=== PATIENT | male | born 1990 | race Hispanic/Latino ===

== ENCOUNTER 2019-10-23 00:48 | Emergency (ER) | payer SELFPAY ==
[2019-10-23] MEDS ORDERED: KETOROLAC 60 MG/2 ML INJ IM ONE (04:52)
[2019-10-23] MEDS ORDERED: dexAMETHasone 20 MG/5 ML VIAL IM ONE (04:52)
[2019-10-23] MEDS ORDERED: COLCHICINE 0.6 MG CAP PO ONE (04:52)
--- NOTE | 2019-10-23 05:15 | Emergency Department Report ---
ED Extremity Problem HPI - General Chief complaint: Extremity Injury, Lower Stated complaint: LT FOOT PAIN W/SWELLILNG Source: patient Mode of arrival: Ambulatory Limitations: No Limitations - History of Present Illness Initial comments: Patient is a 28-year-old white male with a history of chronic gouty arthropathy who presents to the ED with complaint of acute onset persistent severe painful swollen mildly erythematous left great toe, left first MTP joint and left foot pain and swelling for the last 2 days. Patient states that the last 2 weeks he has been eating red meat and seafood and he expected that his gout flare. Patient denies traumatic injury, nausea, vomiting, fever, chills, numbness and tingling or weakness of left foot, chest pain and shortness of breath or low back pain. MD Complaint: extremity pain (left foot, left great toe and first MTP joint pain and swelling), extremity swelling, joint swelling, joint paint -: Sudden, days(s) (2) Location: left, lower extremity (left foot, great toe and first MTP joint pain and swelling), toe (left great toe pain and swelling) History of Same: Yes (chronic gouty arthropathy) -: Yes arthralgia (left great toe and left foot), No fever, No associated dyspnea, No associated chest pain Radiation: distal Severity scale (0 -10): 8 Quality: aching, sharp Consistency: constant Improves with: nothing Worsens with: weight bearing, walking, palpation Associated Symptoms: denies other symptoms, arthralgias. denies: chest pain, shortness of breath, fever, myalgias, rash - Related Data Previous Rx's Medication Instructions Recorded Last Taken Type Clindamycin [Cleocin] 300 mg PO Q8H #30 cap 04/10/15 Unknown Rx Ibuprofen [Motrin] 800 mg PO Q8H PRN #30 tablet 04/10/15 Unknown Rx Colchicine 0.6 mg PO Q8H PRN #15 capsule 10/23/19 Unknown Rx Indomethacin 50 mg PO Q8H PRN #45 capsule 10/23/19 Unknown Rx Prednisone [predniSONE 10 mg 10 mg PO .TAPER #21 tab.ds.pk 10/23/19 Unknown Rx (6-Day Pack, 21 Tabs)] allopurinoL [Zyloprim] 100 mg PO QDAY #30 tablet 10/23/19 Unknown Rx traMADoL [Ultram 50 MG tab] 50 mg PO Q6HR PRN #12 tablet 10/23/19 Unknown Rx Allergies Allergy/AdvReac Type Severity Reaction Status Date / Time sulfamethoxazole Allergy Unknown Verified 10/23/19 00:51 [From Bactrim] trimethoprim [From Bactrim] Allergy Unknown Verified 10/23/19 00:51 ED Review of Systems ROS: Stated complaint: LT FOOT PAIN W/SWELLILNG Other details as noted in HPI Constitutional: denies: chills, fever Eyes: denies: eye pain, eye discharge, vision change ENT: denies: ear pain, throat pain Respiratory: denies: cough, shortness of breath, wheezing Cardiovascular: denies: chest pain, palpitations Endocrine: no symptoms reported Gastrointestinal: denies: abdominal pain, nausea, diarrhea Genitourinary: denies: urgency, dysuria Musculoskeletal: joint swelling (left great toe, left first MTP joint and left foot), arthralgia (left foot, left great toe and left first MTP joint pain and swelling), myalgia. denies: back pain Skin: denies: rash, lesions Neurological: denies: headache, weakness, paresthesias Psychiatric: denies: anxiety, depression Hematological/Lymphatic: denies: easy bleeding, easy bruising ED Past Medical Hx - Past Medical History Previous Medical History?: Yes Hx Arthritis: Yes (gout) Hx Asthma: Yes (as child) - Surgical History Past Surgical History?: No - Social History Smoking Status: Current Every Day Smoker Substance Use Type: None - Medications Home Medications: Home Medications Medication Instructions Recorded Confirmed Last Taken Type Clindamycin [Cleocin] 300 mg PO Q8H #30 cap 04/10/15 Unknown Rx Ibuprofen [Motrin] 800 mg PO Q8H PRN #30 tablet 04/10/15 Unknown Rx Colchicine 0.6 mg PO Q8H PRN #15 capsule 10/23/19 Unknown Rx Indomethacin 50 mg PO Q8H PRN #45 capsule 10/23/19 Unknown Rx Prednisone [predniSONE 10 mg 10 mg PO .TAPER #21 tab.ds.pk 10/23/19 Unknown Rx (6-Day Pack, 21 Tabs)] allopurinoL [Zyloprim] 100 mg PO QDAY #30 tablet 10/23/19 Unknown Rx traMADoL [Ultram 50 MG tab] 50 mg PO Q6HR PRN #12 tablet 10/23/19 Unknown Rx ED Physical Exam - General Limitations: No Limitations General appearance: alert, in no apparent distress - Head Head exam: Present: atraumatic, normocephalic, normal inspection - Eye Eye exam: Present: normal appearance, PERRL, EOMI Pupils: Present: normal accommodation - ENT ENT exam: Present: normal exam, mucous membranes moist, TM's normal bilaterally, normal external ear exam - Neck Neck exam: Present: normal inspection, full ROM. Absent: tenderness - Respiratory Respiratory exam: Present: normal lung sounds bilaterally. Absent: respiratory distress, wheezes, rhonchi, chest wall tenderness, accessory muscle use, prolonged expiratory - Cardiovascular Cardiovascular Exam: Present: regular rate, normal rhythm, normal heart sounds. Absent: systolic murmur, diastolic murmur, rubs, gallop - GI/Abdominal GI/Abdominal exam: Present: soft, normal bowel sounds. Absent: tenderness, hyperactive bowel sounds, hypoactive bowel sounds, mass - Extremities Exam Extremities exam: Present: normal inspection, full ROM, tenderness (palpable left great toe tenderness and swelling with erythematous rash on fast MTP joint), normal capillary refill, joint swelling (left first MTP joint tenderness and swelling) - Back Exam Back exam: Present: normal inspection, full ROM. Absent: tenderness, muscle spasm, paraspinal tenderness, vertebral tenderness - Neurological Exam Neurological exam: Present: alert, oriented X3, CN II-XII intact, normal gait, reflexes normal - Psychiatric Psychiatric exam: Present: normal affect, normal mood - Skin Skin exam: Present: warm, dry, intact, normal color. Absent: rash ED Medical Decision Making - Medical Decision Making This is a 28-year-old male with a history of chronic gouty arthropathy presented to the ED with acute exacerbation of his chronic gouty arthropathy due to severe left great toe and first MTP joint pain and swelling for the last 2 days. In the ED, patient is alert and oriented 3 and is not in distress. Patient was treated in the ED with pain medications and discharged home on pain medications prescriptions and advised to follow-up with his primary care physician in 7-10 days for reevaluation or return to the ED immediately if symptoms get worse. - Differential Diagnosis gouty arthropathy; Tendonitis; Muscle strain; cellulitis; osteoathritis Critical care attestation.: If time is entered above; I have spent that time in minutes in the direct care of this critically ill patient, excluding procedure time. ED Disposition Clinical Impression: Acute gouty arthropathy, Acute pain of left foot Disposition: TO HOME OR SELFCARE Is pt being admited?: No Does the pt Need Aspirin: No Condition: Stable Instructions: Arthralgia (ED), Acute Gouty Arthritis (ED) Additional Instructions: Take medications with food, drink plenty of fluids and follow-up with your primary care physician in 7-10 days for reevaluation. Return to the ED immediately if symptoms get worse. Prescriptions: Colchicine 0.6 mg PO Q8H PRN #15 capsule PRN Reason: Pain , Severe (7-10) Indomethacin 50 mg PO Q8H PRN #45 capsule PRN Reason: Pain , Severe (7-10) Prednisone [predniSONE 10 mg (6-Day Pack, 21 Tabs)] 10 mg PO .TAPER #21 tab.ds.pk traMADoL [Ultram 50 MG tab] 50 mg PO Q6HR PRN #12 tablet PRN Reason: Pain allopurinoL [Zyloprim] 100 mg PO QDAY #30 tablet Referrals: [facility] [Outside] - 3-5 Days Time of Disposition: 05:21 Print Language: MACEDONIAN
[2019-10-23 05:46] VITALS: BP 133/68
== END 2019-10-23 06:02 | disposition home or self-care (01) ==
LOC: ED 00:48
DX: M10.9 Gout, unspecified (principal); J45.909 Unspecified asthma, uncomplicated; F17.200 Nicotine dependence, unspecified, uncomplicated; Z79.899 Other long term (current) drug therapy; Z88.2 Allergy status to sulfonamides
CPT/HCPCS: 96372; 99282; J1100; J1885